=== PATIENT | male | born 1995 | race African-American/Black ===

== ENCOUNTER 2018-11-01 12:25 | Emergency (ER) | payer OTHER ==
[2018-11-01 13:32] VITALS: BP 119/79; PULSE 79; RESP 16; TEMP 98.1
[2018-11-01] MEDS ORDERED: SODIUM CHLORIDE 0.9% 1,000 ML IV STA (14:00)
[2018-11-01] MEDS ORDERED: ASPIRIN 81 MG PO STA (14:00)
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
--- NOTE | 2018-11-01 14:19 | XR ---
EXAMINATION TYPE: XR chest 2V DATE OF EXAM: 11/01/2018 COMPARISON: NONE HISTORY: Chest pain TECHNIQUE: Frontal and lateral views of the chest are obtained. FINDINGS: There is no focal air space opacity, pleural effusion, or pneumothorax seen. The cardiac silhouette size is within normal limits. The osseous structures are intact. IMPRESSION: No acute cardiopulmonary process.
== END 2018-11-01 15:13 | disposition left against medical advice (07) ==
LOC: EC 12:25
DX: R07.89 Other chest pain (principal); F17.200 Nicotine dependence, unspecified, uncomplicated; Z87.828 Personal history of other (healed) physical injury and trauma
CPT/HCPCS: 71046; 93005; 99284